=== PATIENT | female | born 2000 | race Caucasian/White ===

== ENCOUNTER 2020-08-30 01:30 | Emergency (ER) | payer OTHER ==
[2020-08-30 02:36] VITALS: BP 138/79; PULSE 82; TEMP 98.2; BMI 35.4
[2020-08-30] MEDS ORDERED: IBUPROFEN 600 MG TABLET (FP) PO ONE ×2 (03:06→03:23)
[2020-08-30 03:40] LABS: EPI CELLS 6 /uL (0-25.1); HYALINE CASTS 0 /uL (0-3.1); PH,URINE 5.5 (5.0-8.0); URINE APPEARANCE CLOUDY; URINE BACTERIA 287 /uL (0-1359); URINE BILIRUBIN NEGATIVE (NEGATIVE); URINE COLOR YELLOW; URINE GLUCOSE (UA) NEGATIVE (NEGATIVE); URINE KETONE TRACE (NEGATIVE); URINE LEUK ESTERASE 2+ (NEGATIVE); URINE NITRITE NEGATIVE (NEGATIVE); URINE PROTEIN TRACE (NEGATIVE); URINE RBC 287 /uL (0-23.9); URINE UROBILINOGEN 0.2 mg/dL (0.2-1.0); URINE WBC 1086 /uL (0-25.8)
[2020-08-30 03:57] LABS: HCG,QUALITATIVE URINE NEGATIVE
[2020-08-30] MEDS ORDERED: NITROFURANTOIN MACROCRYSTAL 50 MG CAPSULE (FP) ONE (04:06)
[2020-08-30] MEDS ORDERED: NITROFURANTOIN MACROCRYSTAL 50 MG CAPSULE (FP) PO SCH (04:15)
== END 2020-08-30 04:11 | disposition home or self-care (01) ==
LOC: JER 01:30
DX: N39.0 Urinary tract infection, site not specified (principal)
CPT/HCPCS: 81003; 84703; 87086; 99284-25

== ENCOUNTER 2020-11-08 15:26 | Emergency (ER) | payer OTHER ==
[2020-11-08 15:45] VITALS: BP 134/65; PULSE 65; TEMP 97; BMI 35.4
== END 2020-11-08 16:21 | disposition home or self-care (01) ==
LOC: JERFT 15:26
DX: S61.301A Unspecified open wound of left index finger with damage to nail, initial encounter (principal)
CPT/HCPCS: 99282-25

== ENCOUNTER 2021-08-08 03:15 | Inpatient (IN) | payer OTHER ==
[2021-08-08] MEDS ORDERED: AMPICILLIN SODIUM 2 GM VIAL ONE (04:15)
[2021-08-08] MEDS: DEXTROSE 5%-LACTATED RINGERS 1,000 ML IV SCH (05:00)
[2021-08-08] MEDS ORDERED: PROMETHAZINE HCL 25 MG/1 ML VIAL IVPUSH ONE (05:07)
[2021-08-08] MEDS ORDERED: BUTORPHANOL TARTRATE 1 MG/ML VIAL IVPB ONE (05:07)
[2021-08-08] MEDS ORDERED: AMPICILLIN - 2 GM in SODIUM CHLORIDE 100 ML IVPB ONE (05:07)
[2021-08-08] MEDS ORDERED: OXYTOCIN 30 UNITS in 0.9% NS 30 UNIT/500 ML INFUS.BAG IVPB SCH (05:15)
[2021-08-08 05:52] LABS: BASO % 0.6 % (0-2.0); EOS % 0.7 % (0-4.5); HEMATOCRIT 32.8 % (32.4-45.2); HEMOGLOBIN 10.8 GM/dL (10.7-15.3); LYMPH % 28.5 % (8-40); MCH 25.2 pg (25.7-33.7); MEAN CELL VOLUME 76.5 fl (80-96); MEAN PLT VOLUME 9.4 fl (7.5-11.1); MONO % 14.9 % (3.8-10.2); NEUT % 55.3 % (42.8-82.8); PLATELET COUNT 302 10^3/uL (134-434); RBC 4.28 M/mm3 (3.60-5.2); RDW 15.7 % (11.6-15.6); WHITE BLOOD COUNT 7.2 K/mm3 (4.0-10.0)
[2021-08-08 06:05] VITALS: BMI 42.3
[2021-08-08 06:05] LABS: PROTHROMBIN TIME (PATIENT) 11.7 SEC (9.7-13.0)
[2021-08-08 06:07] LABS: ACTIVATED PTT 26.6 SECONDS (25.2-36.5); CALCIUM 8.7 mg/dL (8.5-10.1)
[2021-08-08 06:08] LABS: BLOOD UREA NITROGEN 6.3 mg/dL (7-18)
[2021-08-08 06:11] LABS: CREATININE 0.6 mg/dL (0.55-1.3)
[2021-08-08] MEDS ORDERED: AMPICILLIN SODIUM 1 GM VIAL ONE ×4 (08:18→21:03)
[2021-08-08] MEDS: AMPICILLIN - 1 GM in SODIUM CHLORIDE 100 ML IVPB SCH ×3 (09:00→17:00)
[2021-08-08] MEDS ORDERED: PROMETHAZINE HCL 25 MG/1 ML VIAL ONE (20:10)
[2021-08-08] MEDS ORDERED: BUTORPHANOL TARTRATE 2 MG/ML VIAL ONE (20:10)
[2021-08-09] MEDS ORDERED: FENTANYL/BUPIVACAINE/NS/PF - PCEA - 50 ML DISP.SYRIN EP ONE ×2 (00:06→04:37)
[2021-08-09] MEDS ORDERED: AMPICILLIN SODIUM 1 GM VIAL ONE (00:48)
[2021-08-09] MEDS ORDERED: NALOXONE HCL 0.4 MG/ML VIAL IVPUSH PRN (00:48)
[2021-08-09] MEDS: AMPICILLIN - 1 GM in SODIUM CHLORIDE 100 ML IVPB SCH ×2 (01:00→05:00)
[2021-08-09] MEDS ORDERED: OXYTOCIN 20 UNITS in 0.9% NS 20 UNIT/1,000 ML INFUS.BAG IV ONE (05:11)
[2021-08-09] MEDS ORDERED: LIDOCAINE HCL 1% PRESERVATIVE FREE - 30ML VIAL ONE (05:12)
[2021-08-09] MEDS ORDERED: BENZOCAINE 20% 57 GM BOTTLE TP PRN (07:28)
[2021-08-09] MEDS ORDERED: oxyCODONE HCL 5 MG TABLET PO PRN (07:28)
[2021-08-09] MEDS ORDERED: BISACODYL 10 MG SUPP.RECT RC PRN (07:28)
[2021-08-09] MEDS ORDERED: WITCH HAZEL 50% (TUCKS) 40 PAD/JAR PAD TP PRN (07:28)
[2021-08-09] MEDS ORDERED: METHYLERGONOVINE MALEATE 0.2 MG/1 ML AMP IM PRN (07:28)
[2021-08-09] MEDS ORDERED: BENZOCAINE 28 GM HEMORRHOIDAL OINTMENT TP PRN (07:28)
[2021-08-09] MEDS ORDERED: ACETAMINOPHEN 325 MG TABLET (FP) PO PRN (07:28)
[2021-08-09] MEDS ORDERED: OXYTOCIN 20 UNITS in 0.9% NS 20 UNIT/1,000 ML INFUS.BAG IV SCH (07:30)
[2021-08-09] MEDS ORDERED: PCA PUMP NR ONE (07:47)
[2021-08-09] MEDS ORDERED: IBUPROFEN 600 MG TABLET (FP) PO ONE ×2 (08:11→08:53)
[2021-08-09] MEDS ORDERED: ACETAMINOPHEN 325 MG TABLET (FP) ONE (08:12)
[2021-08-09 08:44] LABS: CORD BASE EXCESS -7.5 mmol/L (0-2); CORD HCO3 19.6 mmHg (20-29); CORD pH 7.257 (7.14-7.44)
[2021-08-09 08:47] LABS: CORD BASE EXCESS -6.9 mmol/L (0-2); CORD HCO3 19.8 mmHg (20-29); CORD PCO2 44.1 mmHg (30-78); CORD pH 7.271 (7.14-7.44)
[2021-08-09] MEDS: IBUPROFEN 600 MG TABLET (FP) PO PRN (08:50)
[2021-08-09] MEDS: PRENATAL VITAMINS W/ FOLIC ACID TABLET (FP) PO SCH (10:46)
[2021-08-10] MEDS: IBUPROFEN 600 MG TABLET (FP) PO PRN ×2 (00:22→09:52)
[2021-08-10 09:29] LABS: BASO % 0.4 % (0-2.0); EOS % 0.7 % (0-4.5); HEMATOCRIT 26.8 % (32.4-45.2); HEMOGLOBIN 8.8 GM/dL (10.7-15.3); LYMPH % 20.7 % (8-40); MCH 25.4 pg (25.7-33.7); MCHC 32.8 g/dl (32.0-36.0); MEAN CELL VOLUME 77.2 fl (80-96); MEAN PLT VOLUME 9.1 fl (7.5-11.1); NEUT % 66.2 % (42.8-82.8); PLATELET COUNT 242 10^3/uL (134-434); RBC 3.48 M/mm3 (3.60-5.2); RDW 15.9 % (11.6-15.6); WHITE BLOOD COUNT 9.7 K/mm3 (4.0-10.0)
[2021-08-10] MEDS: PRENATAL VITAMINS W/ FOLIC ACID TABLET (FP) PO SCH (09:53)
[2021-08-10] MEDS: FENTANYL/BUPIVACAINE/NS/PF - PCEA - 50 ML DISP.SYRIN EP SCH (19:56)
[2021-08-10] MEDS ORDERED: SENNOSIDES/DOCUSATE COMBO (SENNA PLUS) TABLET (UD) PO PRN (22:00)
[2021-08-11] MEDS: DEXTROSE 5%-LACTATED RINGERS 1,000 ML IV SCH (09:46)
[2021-08-11] MEDS: PRENATAL VITAMINS W/ FOLIC ACID TABLET (FP) PO SCH (10:00)
[2021-08-11 10:34] VITALS: BP 99/64; PULSE 84; TEMP 98.2
== END 2021-08-11 13:13 | disposition home or self-care (01) | DRG 807 ==
LOC: JLDR 03:15 → J3W 08-09 09:15
PROVIDERS: ADMIT Obstetrics & Gynecology; ATTEND Obstetrics & Gynecology
PROC: 10E0XZZ Delivery of Products of Conception, External Approach (ICD-10-PCS; principal; 2021-08-09)
PROC: 0HQ9XZZ Repair Perineum Skin, External Approach (ICD-10-PCS; 2021-08-09)
DX: O99.820 Streptococcus B carrier state complicating pregnancy (principal); Z37.0 Single live birth; O99.214 Obesity complicating childbirth; O70.0 First degree perineal laceration during delivery; Z3A.39 39 weeks gestation of pregnancy
CPT/HCPCS: 36415; 36600; 59409; 80048; 82803; 85025; 85461; 85610; 85730; 86780; 86850; 86900; 86901; 86999; C9803; U0003; U0005

== ENCOUNTER 2022-05-12 16:55 | Emergency (ER) | payer OTHER ==
[2022-05-12 17:00] VITALS: BP 111/82; PULSE 89; RESP 18; TEMP 97.8; BMI 42.5
[2022-05-12] MEDS ORDERED: IBUPROFEN 600 MG TABLET (FP) PO ONE ×2 (17:57→18:00)
== END 2022-05-12 18:09 | disposition home or self-care (01) ==
LOC: JERFT 16:55 → JER 16:55 → JERFT 18:09
DX: S61.451A Open bite of right hand, initial encounter (principal)
CPT/HCPCS: 99283-25

== ENCOUNTER 2025-04-26 17:34 | Emergency (ER) | payer OTHER ==
[2025-04-26 17:41] VITALS: BP 112/72; PULSE 61; RESP 18; TEMP 98.1; BMI 35.9
[2025-04-26 19:55] LABS: ABSOLUTE IMMATURE GRANULOCYTES 0.02 x10^3/uL (0.0-0.031); BASOPHILS # 0.05 x10^3/uL (0.01-0.08); EOSINOPHIL % 1.6 % (0.7-5.8); EOSINOPHILS # 0.11 x10^3/uL (0.04-0.36); MCHC 31.0 g/dl (32.2-35.5); MEAN CELL VOLUME 85.5 fl (79.4-94.8); MEAN PLT VOLUME 10.1 fl (9.4-12.3); MONOCYTE # 0.58 x10^3/uL (0.24-0.86); MONOCYTE % 8.4 % (4.7-12.5); RDW 13.2 % (12.1-16.5)
[2025-04-26 20:07] LABS: GLUCOSE,RANDOM 106.0 mg/dL (74-106); TOT PROT 7.5 g/dl (6.4-8.2)
[2025-04-26 20:08] LABS: CO2 20.0 mmol/L (21-32)
[2025-04-26 20:10] LABS: ALK PHOS 89.0 U/L (40-150)
[2025-04-26 20:12] LABS: SGPT/ALT 15.0 U/L (0-55)
[2025-04-26 20:13] LABS: CREATININE 0.94 mg/dL (0.55-1.3); SGOT/AST 19.0 U/L (5-34)
[2025-04-26 20:34] LABS: HCV DIAGNOSTIC IN-HOUSE W/RFLX NON-REACTIVE (NONREACTIVE); HIV INTERPRETATION NEGATIVE (NEGATIVE)
== END 2025-04-26 20:44 | disposition home or self-care (01) ==
LOC: JER 17:34
DX: R07.2 Precordial pain (principal); R05.9 Cough, unspecified; R06.02 Shortness of breath; R00.1 Bradycardia, unspecified
CPT/HCPCS: 36415; 71046-TC-FY; 80053; 84484; 85025; 85379; 86803; 87389; 93005; 93010; 99285-25